=== PATIENT | female | born 1965 | race Two or more races ===

== ENCOUNTER 2018-12-11 19:08 | Emergency (ER) | payer OTHER ==
[2018-12-11 19:12] VITALS: BP 120/68; PULSE 103; TEMP 98.1; BMI 25.2
--- NOTE | 2018-12-11 20:48 | PDOC ---
History of Present Illness - General Chief Complaint: Cold Symptoms Stated Complaint: NASAL CONGESTION/CHEST PAIN Time Seen by Provider: 12/11/18 20:16 History Source: Patient, [employer]visor Used (#[id number]) Exam Limitations: Clinical Condition - History of Present Illness Initial Comments: 12/11/18 20:52 Patient with no significant past medical history present with complaint of three -day history of persistent cough, nasal congestion, runny nose, sinus pressure and sore throat. Patient also reported tactile fever. Denies nausea, vomiting or diarrhea. Denies any other symptoms Timing/Duration: other (3 days) Past History - Past Medical History Allergies/Adverse Reactions: Allergies Allergy/AdvReac Type Severity Reaction Status Date / Time No Known Allergies Allergy Verified 12/11/18 19:13 Home Medications: Ambulatory Orders Azithromycin [Zithromax Tri-Bernardino (3 DAYS) -] 500 mg PO DAILY #3 tablet 12/11/18 Benzonatate [Tessalon Pearls -] 100 mg PO TID PRN #21 capsule 12/11/18 Loratadine 10 mg PO DAILY #10 capsule 12/11/18 Methylprednisolone [Medrol Dose Bernardino] 4 mg PO ASDIR #21 tablet 12/11/18 COPD: No Diabetes: Yes - Surgical History Cholecystectomy: Yes - Suicide/Smoking/Psychosocial Hx Smoking History: Never smoked Review of Systems - Review of Systems Able to Perform ROS?: Yes Is the patient limited Latvian proficient: No Constitutional: Yes: See HPI, Fever (tactile). No: Malaise, Weakness HEENTM: Yes: Symptoms Reported, See HPI, Nose Congestion, Throat Pain. No: Eye Pain, Blurred Vision, Tearing, Recent change in vision, Double Vision, Cataracts , Ear Pain, Ocular Prothesis, Ear Discharge, Nose Pain, Tinnitus, Nose Bleeding , Hearing Loss, Throat Swelling, Mouth Pain, Dental Problems, Difficulty Swallowing, Mouth Swelling, Other Respiratory: Yes: Symptoms reported, See HPI, Cough. No: Orthopnea, Shortness of Breath, SOB with Exertion, SOB at Rest, Stridor, Wheezing, Productive cough, Hemoptysis, Other Cardiac (ROS): No: Symptoms Reported, See HPI, Chest Pain, Edema, Irregular Heart Rate, Lightheadedness, Palpitations, Syncope, Chest Tightness, Other ABD/GI: No: Nausea, Vomiting All Other Systems: Reviewed and Negative *Physical Exam - Vital Signs Last Vital Signs Temp Pulse Resp BP Pulse Ox 98.1 F 103 H 18 120/68 98 12/11/18 19:10 12/11/18 19:10 12/11/18 19:10 12/11/18 19:10 12/11/18 19:10 - Physical Exam Comments: 12/11/18 20:53 GENERAL: Well developed, well nourished. Awake and alert. No acute distress. HEENT: Normocephalic, atraumatic. PERRLA, EOMI. No conjunctival pallor. Sclera are non-icteric. Moist mucous membranes. Oropharynx is clear. NECK: Supple. Full ROM. CARDIOVASCULAR: Regular rate and rhythm. No murmurs, rubs, or gallops. Distal pulses are 2+ and symmetric. PULMONARY: No evidence of respiratory distress. Lungs clear to auscultation bilaterally. No wheezing, rales or rhonchi. ABDOMINAL: Soft. Non-tender. Non-distended. No rebound or guarding. No organomegaly. Normoactive bowel sounds. MUSCULOSKELETAL Normal range of motion at all joints. SKIN: Warm and dry. Normal capillary refill. No rashes. No jaundice. NEUROLOGICAL: Alert, awake, appropriate. Gait is normal without ataxia. PSYCHIATRIC: Cooperative. Good eye contact. Appropriate mood General Appearance: Yes: Nourished, Appropriately Dressed. No: Apparent Distress Moderate Sedation - Procedure Monitoring Vital Signs: Procedure Monitoring Vital Signs Temperature 98.1 F 12/11/18 19:10 Pulse Rate 103 H 12/11/18 19:10 Respiratory Rate 18 12/11/18 19:10 Blood Pressure 120/68 12/11/18 19:10 O2 Sat by Pulse Oximetry (%) 98 12/11/18 19:10 Medical Decision Making - Medical Decision Making 12/11/18 20:53 Patient with no syncopal past medical history present with complaint of three- day history of URI symptoms with tactile fever and sore throat. Clinical exam unremarkable lungs clear to auscultation bilateral and no pharyngeal erythema. Patient afebrile. Symptoms viral URI symptoms with pharyngitis. Patient will be treated with Medrol Bernardino and antihistamine for nasal congestion with Tessalon Perles as needed for cough with PCP follow- up.Patient also with symptoms of sinusitis and will be treated on three-day Zithromax. *DC/Admit/Observation/Transfer Diagnosis at time of Disposition: URI (upper respiratory infection) Qualifiers: URI type: unspecified URI Qualified Code(s): J06.9 - Acute upper respiratory infection, unspecified Pharyngitis Qualifiers: Pharyngitis/tonsillitis etiology: unspecified etiology Qualified Code(s): J02.9 - Acute pharyngitis, unspecified Sinusitis Qualifiers: Sinusitis location: maxillary Chronicity: acute Recurrence: non-recurrent Qualified Code(s): J01.00 - Acute maxillary sinusitis, unspecified - Discharge Dispostion Disposition: HOME Condition at time of disposition: Stable Decision to Admit order: No - Prescriptions Prescriptions: Azithromycin [Zithromax Tri-Bernardino (3 DAYS) -] 500 mg PO DAILY #3 tablet Benzonatate [Tessalon Pearls -] 100 mg PO TID PRN #21 capsule PRN Reason: Cough Loratadine 10 mg PO DAILY #10 capsule Methylprednisolone [Medrol Dose Bernardino] 4 mg PO ASDIR #21 tablet - Referrals - Patient Instructions Printed Discharge Instructions: DI for Viral Upper Respiratory Infection -- Adult Additional Instructions: Take medications as prescribed. Increase fluid intake. Follow-up with primary care as needed - Post Discharge Activity
== END 2018-12-11 20:53 | disposition home or self-care (01) ==
LOC: JERFT 19:08
DX: J01.00 Acute maxillary sinusitis, unspecified (principal); J02.9 Acute pharyngitis, unspecified; J06.9 Acute upper respiratory infection, unspecified
CPT/HCPCS: 99281-25